=== PATIENT | female | born 1940 | race Caucasian/White ===

== ENCOUNTER → 2019-05-25 | Outpatient (CLI) | payer OTHER ==
--- NOTE | 2019-05-27 11:02 | RAD ---
History: Routine screening. Technique: Bilateral digital mammographic routine views were obtained with CAD - computer aided detection. Comparison: None. This is a baseline. Findings: Breast Tissue Density B :The breast tissue is composed of mixed fatty and fibroglandular tissue. There are no suspicious masses, microcalcifications or areas of architectural distortion. Impression: Negative mammogram. BI-RADS Category 1: Negative. Normal interval followup. A mammogram does not have 100% sensitivity and therefore a negative imaging study should not delay further work up of a suspicious abnormality. The patient will receive a letter with the results in the mail. Patient information is entered into the reminder system with a target due date for the next screening mammogram. The patient will receive a reminder. "Our facility is accredited by the [employer] Mammography Program." BI-RADS 1 -- negative findings (within normal)
== END | disposition home or self-care (01) ==
LOC: MAMMO 13:55
PROVIDERS: ATTEND Family Medicine
DX: Z12.31 Encounter for screening mammogram for malignant neoplasm of breast (principal); F33.41 Major depressive disorder, recurrent, in partial remission
CPT/HCPCS: 77067

== ENCOUNTER → 2020-07-14 | Outpatient (CLI) | payer OTHER ==
[~2020-07-14] MED LIST: IOHEXOL 240 MG/ML 50ML VIAL. PO ONE
--- NOTE | 2020-07-14 17:15 | RAD ---
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 Axial, coronal and sagi ttal reformatted images were generated. PQRS compliance statement - One or more of the following individualized dose reduction techniques wer e utilized for this study: 1. Automated exposure control 2. Adjustment of the mA and/or kV according to patient size 3. Use of iterative reconstruction technique FINDINGS: Lack of intravenous contrast limits evaluation of solid organs, vasculature, and lymph nodes. Lower chest: Bandlike and patchy opacities right lower lobe, middle lobe as well as lingula likely scarring/atelec tasis. Microcalcifications are seen. Cardiac calcifications are seen. Abdomen and Pelvis: Left hepatic cyst is seen. High density material dependently within the gallbladder likely sludge. No biliary duct dilatation. Spleen, pancreas and adrenal glands are unremarkable. No focal renal lesion. Nonobstructing left upper pole and interpolar renal calculus. No hydronephrosi s. No hydroureter. Bladder is unremarkable. Moderate colonic stool content is seen. Thickening of the right colonic wall. Large volume stool seen within the rectum. No small or large bowel dilatation. No bowel obstruction. Appendix is normal. Col onic diverticulosis without evidence for acute diverticulitis. Aorta is normal in caliber. Atherosclerotic calcifications of aorta are seen. Small fat-containing pe riumbilical hernia is seen. Bones: Trace anterolisthesis of L4 on L5 and L5 on S1. Multilevel facet degenerative changes are seen. Promi nent degenerative changes of the lower thoracic spine. No spondylolisthesis. Symphysis pubis degenera tive changes are seen. IMPRESSION: 1. No abdominal or pelvic lymphadenopathy. 2. Thickening of the right colonic wall, should be further assessed with colonoscopy if not recently performed. 3. Colonic diverticulosis without evidence for acute diverticulitis. 4. Nonobstructing left renal calculi. Electronically signed by: Emory Duran MD (07/14/2020 5:13 PM) [id number]
== END ==
LOC: CT 10:30
PROVIDERS: ATTEND Family Medicine
DX: C82.49 Follicular lymphoma grade IIIb, extranodal and solid organ sites (principal); K76.89 Other specified diseases of liver; I70.0 Atherosclerosis of aorta; K42.9 Umbilical hernia without obstruction or gangrene; N20.0 Calculus of kidney; K57.30 Diverticulosis of large intestine without perforation or abscess without bleeding
CPT/HCPCS: 74176; Q9966